=== PATIENT | male | born 1950 | race Caucasian/White ===

== ENCOUNTER → 2017-11-28 | Outpatient (CLI) | payer OTHER ==
[~2017-11-28] MED LIST: A AND D OINTM42.5 GM TOP; ADULT WAL-100 MG/5 M PO; ATORVASTATIN CA80 MG PO; AZITHROMYCIN 2250 MG PO; BACITRACIN28.4 G1 TOP; CLARITIN10 MG PO; CLOTRIMAZOLE 1%15 G1 TOP; COZAAR 50 MG TA50 M1 PO; CYMBALTA60 MG PO; GLYXAMBI 10 MG1 EACH PO; LEVEMIR SUBQ; LOPRESSOR25 PO; METFORMIN HCL500 MG PO; NEURONTIN 300300 M1 PO; NOVOLOG100 UNIT/1 SUBQ; PROSCAR 5MG TABL5 MG PO; PROTONIX40 M1 PO; REQUIP 1 MG TABL1 M1 PO; SAXENDA3 MG/0.5 M SUBQ; SILDENAFIL CIT100 MG PO; TERAZOSIN HCL5 MG PO; TYLENOL EXTRA500 MG PO; VITAMIN D2000 UNIT PO
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
== END | disposition home or self-care (01) ==
LOC: M.PC 05:19
DX: M48.062 Spinal stenosis, lumbar region with neurogenic claudication (principal); E11.9 Type 2 diabetes mellitus without complications; I10 Essential (primary) hypertension; M79.7 Fibromyalgia; M19.90 Unspecified osteoarthritis, unspecified site; Z90.49 Acquired absence of other specified parts of digestive tract; Z98.890 Other specified postprocedural states; Z98.49 Cataract extraction status, unspecified eye; Z96.1 Presence of intraocular lens; Z87.442 Personal history of urinary calculi; Z79.899 Other long term (current) drug therapy

== ENCOUNTER → 2018-05-17 | Outpatient (CLI) | payer OTHER ==
--- NOTE | 2018-05-23 14:16 | PAINCON ---
[address] [address] PAIN MANAGEMENT CONSULTATION Name: KENNEDI WASHBURN II Room: [facility] ANN Muñoz#: [id number] Admission: 05/17/18 Attend Phys: John Campos MD Discharge: Date of : 54 Report #: [id number] THIS REPORT FOR: //name// CC: AILYN Campos DATE OF SERVICE: 05/17/2018 FOLLOWUP COMPLAINT: Return of low back pain. FOLLOWUP HISTORY: The patient is a 68-year-old gentleman, who has come to the pain clinic for followup and treatment. He is having pain and discomfort in his low back area. He has had some pain for years. He has undergone an epidural steroid injection in the past. He generally gets his health care at the [facility]. At this juncture, they have been back locked. He has been seen in the pain clinic here and undergone an epidural steroid injection. He has gleaned some benefit from that. He has had chronic pain since 1988. He notes that he gets greater than 50% improvement after the epidural steroid injections. He is having pain that is radiating down into his right leg and thigh with numbness, tingling, and discomfort. He also has peripheral neuropathy secondary to diabetes. He states that he has fibromyalgia. He has been taking Cymbalta and gabapentin to help with the pain. He has been falling due to weakness in his legs and dragging his right toes. He does walk using a brace. He rates his pain as an 8/10 at this juncture. CURRENT MEDICATIONS: Gabapentin 300 mg, ropinirole hydrochloride 1 mg, Lipitor 80 mg, vitamin D3, metoprolol 25 mg, terazosin 5 mg, losartan 50 mg, finasteride 5 mg, Toprazole 40 mg, sildenafil citrate 100 mg, Clotrimazole 1% topical solution, empagliflozin 10 mg, metformin 500 mg, insulin, bacitracin 500 unit topical ointment, loratadine 10 mg, Victoza, guaifenesin 100 mg, azithromycin 250 mg, and duloxetine 60 mg. ALLERGIES: No known drug allergies. PAIN CLINIC ASSESSMENT: 1. History of osteoarthritis. The patient has had surgery on his upper neck. 2. History of rheumatoid arthritis not noted. 3. Pain intensity 8/10. 4. Fall risk. The patient states that he has been falling secondary to dragging his right toes and is wearing a brace. 5. Blood thinner. The patient is not on a blood thinner. 6. History of hypertension. The patient is being treated for hypertension. 7. Opioid therapy greater than 6 weeks. The patient is not currently on opioid regimen. 8. Risk assessment. Pain impact tool rate 47/70. 9. Recreational drug use. The [place] [address] PAIN MANAGEMENT CONSULTATION Name: MADDISONKENNEDI CHANDRIKA SWAIN [id number] Admission: 05/17/18 Attend Phys: John Campos MD Discharge: Date of : 54 Report #: [id number] 10. Tobacco: The patient denies use of tobacco. 11. Alcoholic beverages. The patient denies use of alcoholic beverages on a regular basis. PHYSICAL EXAMINATION: GENERAL: The patient is a well-developed white male. There is no evidence of distress. He is somewhat obese. He appears his stated age. He is alert and oriented x 3. Affect is appropriate. He is very loquacious. Height is 5 feet 7 inches, weight is 299 pounds, and BMI is 45. Vital signs: Blood pressure is 140/88, heart rate is 78, respiratory rate is 18, room air saturation is 96%, and temperature is 98.3. HEENT: Normocephalic, atraumatic. Extraocular eye muscles intact. Sclerae nonicteric. Mucous membranes are moist. NECK: Without adenopathy or bruits. LUNGS: Clear to auscultation, but distant secondary to the patient's body habitus. HEART: Regular rate. ABDOMEN: Protuberant. MUSCULOSKELETAL: Without significant kyphosis or lordosis. The patient has upper motor strength judged to be 5/5. Deep tendon reflexes difficult to perceive secondary to the patient's ability to comply. The patient complains of bilateral knee pain. The patient has had pain in his knees since age 21. The patient ambulates with use of a walking wheelchair type device, walks with a cane at home. Straight leg raise is positive. The patient has difficulty lifting his foot because of numbness and tingling down into his toes. IMPRESSION: 1. Low back pain with claudication, neuropathic pain, neurogenic pain, and limited to 75 feet. 2. Diabetes. 3. Hypertension. 4. Fibromyalgia. RECOMMENDATIONS: We discussed treatment options with the patient. Risks and benefits of an epidural steroid injection were again reviewed. Possible complications of the procedure were discussed. Possibility of infection, worsening of pain, no improvement in pain, spinal headache, and paralysis were discussed. The patient elects to proceed. PROCEDURE NOTE: The patient was placed in the prone position. His back was sterilely prepped with a Betadine solution. Fluoroscopy using anterior, posterior as well as lateral viewing were used to inject in the appropriate area. A total of 80 mg Depo-Medrol, 40 mg of triamcinolone, and 2 mL of 0.25% bupivacaine were injected in the right paraspinous area at L5-S1. The patient tolerated the procedure well. There were no complications. He was then assisted in going to the recovery room. A Band-Aid [place] [address] PAIN MANAGEMENT CONSULTATION Name: KENNEDI WASHBURN II Room: [facility] ANN Muñoz#: [id number] Admission: 05/17/18 Attend Phys: John Campos MD Discharge: Date of : 54 Report #: [id number] bleeding. He remained for an appropriate amount of time. He will follow up in the future as needed. We would like to thank you for letting us to participate in his care. We hope he continues to improve. <ELECTRONICALLY SIGNED> By: John Campos MD 05/23/18 1416 [id number]. Kevin Campos MD /[facility]
== END | disposition home or self-care (01) ==
LOC: M.PC 03:25
DX: M54.16 Radiculopathy, lumbar region (principal); G89.29 Other chronic pain; I10 Essential (primary) hypertension; E11.40 Type 2 diabetes mellitus with diabetic neuropathy, unspecified; M79.7 Fibromyalgia; Z79.899 Other long term (current) drug therapy; Z79.4 Long term (current) use of insulin; Z98.890 Other specified postprocedural states